=== PATIENT | female | born 1985 | race Caucasian/White ===

== ENCOUNTER 2018-05-17 05:29 | Inpatient (IN) ==
[2018-05-19 08:02] VITALS: BP 109/64
== END 2018-05-19 12:55 | disposition home or self-care (01) | DRG 766 ==
LOC: N.LDOUT 05:29 → N.LD 05:31 → N.OB 10:45
PROVIDERS: ADMIT Specialist; ATTEND Specialist
PROC: LDCSECT (ICD-10-PCS; 2018-05-17 07:00)